=== PATIENT | female | born 1995 | race Caucasian/White ===

== ENCOUNTER 2016-08-16 22:58 | Observation (INO) | payer OTHER ==
[~2016-08-16] VITALS: Ht 157.5 cm; Wt 66.5 kg
--- NOTE | ~2016-08-16 | HP ---
PATIENT'S NAME: MEGAN LI [facility] AGE: 21 Y [address] ROOM: [address] [address] LOCATION: ED ADMIT DATE: 08/17/2016 History & Physical DISCHARGE DATE: FAMILY PHYSICIAN: PHYSICIAN, NO ATTENDING PHYSICIAN: CHYNA FRAGA DATE OF SERVICE: CHIEF COMPLAINT: Suprapubic and left lower quadrant abdominal pain. HISTORY OF PRESENT ILLNESS: This is a 21-year-old female without any past medical history and generally in good health, who says that she was at a bar eating chipotle and drinking beer with her boyfriend, and when she got up to go to the bathroom to urinate, she felt a sudden onset of suprapubic and left lower quadrant abdominal pain, intensity about 6/10, it is constant, and felt like a cramping type of pain. It gets worse with movement. She initially thought was just a urinary retention; however, the pain persisted despite having empty her bladder. She denied any dysuria, urinary frequency, or urgency. Her last bowel movement was today earlier at 2 p.m., it was normal, and she still passes flatus. She absolutely denies any nausea or vomiting. She never had any surgery in the abdomen before. She also has never felt like this before. Regarding her gynecological history, she is sexually active, using protection with having active sexual intercourse with her boyfriend, and she denies any history of sexually transmitted disease. She also denies any vaginal discharge or any foul-smelling discharge or any purulent drainage from her vagina. Her last menstrual period was 2 months ago. It is because she already has intrauterine device implanted on June 21, 2016, without complication and also without any pain. Her last Pap smear was checked a year ago, it was normal. She denies any other symptoms. Because of the worsening pain in the suprapubic and left lower quadrant area, the patient came here for evaluation. REVIEW OF SYSTEMS: As mentioned in the history of present illness. All other systems reviewed and negative except those mentioned in the history of present illness. PAST MEDICAL HISTORY: None. ALLERGIES: 1. PENICILLIN, WHICH CAUSES RASH. 2. CEPHALEXIN, ALSO CAUSES RASH. PATIENT'S NAME: MEGAN LI [facility] AGE: 21 Y [address] ROOM: [id number] [place], [place] [address] LOCATION: GPED ADMIT DATE: 08/17/2016 History & Physical DISCHARGE DATE: FAMILY PHYSICIAN: PHYSICIAN, HOLLY ATTENDING PHYSICIAN: CHYNA FRAGA MEDICATIONS: None. SOCIAL HISTORY: The patient denies any alcohol or illegal drug or cigarette smoking. PAST SURGICAL HISTORY: Status post left elbow surgery from trauma in the past and also status post tonsillectomy. She strongly denies any intraabdominal surgery in the past. FAMILY HISTORY: Father is healthy and mother has hypothyroidism. PHYSICAL EXAMINATION: VITAL SIGNS: At the time of my dictation, temperature 98, blood pressure 140/80, heart rate 75, respirations 14, saturation 100% on room air. GENERAL APPEARANCE: Alert and oriented x3, in no acute distress. HEENT: Pupils are equally round and reactive to light. Extraocular muscles intact. Anicteric sclerae. Nasal turbinates are normal bilaterally. Moist oral mucosa. No oral thrush. NECK: No JVD. No cervical lymphadenopathy. No neck stiffness. CARDIOVASCULAR: Regular rate and rhythm. Normal S1, S2. No murmur. No rubs, no gallops. RESPIRATORY: Clear. ABDOMEN: Soft, nondistended, bowel sounds present, no abdominal rigidity, no rebound tenderness, bowel sounds are present. There is mild tenderness to palpation in the suprapubic and in the left lower quadrant area. No ascites. EXTREMITIES: No edema in upper or lower extremities. NEUROLOGICAL: Grossly nonfocal. SKIN: No ulcer, no rash, no cyanosis. MUSCULOSKELETAL: No joint pain. No muscle pain. LABORATORY DATA: Lactic acid 1.21. White blood cell 8.8, hemoglobin 14.4, hematocrit 42.8, MCV 88.8, platelet 285. Glucose 96, BUN 8, creatinine 0.6, sodium 144, potassium 3.5, chloride 109, CO2 of 24, calcium 8.8. Total protein 7.7, albumin 3.9, AST 16, ALT 24, alkaline phosphatase 131, total bilirubin 0.2, anion gap 14.5, globulin 3.8, GFR more than 60. Urinalysis negative for UTI. Urine test, human chorionic gonadotropin hormone negative. Amylase 81, lipase 179. CRP 2.56. IMAGING STUDIES: KUB, the official report is pending. CT abdomen and pelvis with contrast on admission, the preliminary report PATIENT'S NAME: MEGAN LI [facility] AGE: 21 Y [address] ROOM: [id number] [place], [place] [id number] LOCATION: GPED ADMIT DATE: 08/17/2016 History & Physical DISCHARGE DATE: FAMILY PHYSICIAN: PHYSICIAN, NO ATTENDING PHYSICIAN: CHYNA FRAGA showed partial and mild proximal small bowel obstruction involving the proximal jejunum. Presentation is mildly suspicious for a left paraduodenal hernia. Alternatively, inflammatory findings may be secondary to a segmental enteritis. ASSESSMENT AND PLAN: 1. Regarding her suprapubic and left lower quadrant abdominal pain: She does not have any risk factor for small bowel obstruction. The report on the CT is preliminary, therefore, has to follow up with the official final report in the morning once it becomes finalized. For the questionable small bowel obstruction, that is partial and mild, will be NG tubed for intermittent suctioning, n.p.o. and IV fluids and pain control with narcotics p.r.n. The patient refused NG tube given that it is too uncomfortable. Currently, her abdominal pain is significantly improved, and she is not actively vomiting, and given that the patient refused NG tube, I am not going to force her. I am going to wait for the final report in the morning of the CT scan to confirm small bowel obstruction, and at that time, NG tube can be placed again if the patient agree. CT scan also showed left adnexal dermoid lesion, measures 3.3 x 1.9 cm. She also has pain on the palpation of the left lower quadrant, and she is very young and recently had intrauterine device implanted. I am going to get a pelvic ultrasound to make sure that there is no finding of ovarian torsion and have a better look at the left adnexal dermoid lesion to see better in detail. The patient refused pelvic examination. However, the patient denies any purulent discharge from the vagina, my other differential will be the pelvic inflammatory disease, but based on my examination from the abdominal palpation, the pain is very minor, and she is not febrile, there is no leukocytosis, probably less likely is the pelvic inflammatory disease. The other differential is the enteritis, for that, I am going to cover her with IV ciprofloxacin and IV Flagyl empirically for coverage for enteritis. Follow up with the official report of the CT abdomen and pelvis in the morning. In the morning, we will get a KUB again. Further plan depends on clinical course. 2. For her deep venous thrombosis prophylaxis: The patient is young. The patient can ambulate, does not require pharmacological medication and also does not require compression devices. Time spent in care on the day of admission 40 minutes including chart review, interviewing and examining the patient, addressing all the questions and concerns that the patient had, and going over the plan of care with the patient and the nurse and also the patient's boyfriend at the bedside. CHYNA FRAGA MD PATIENT'S NAME: MEGAN LI [facility] AGE: 21 Y [address] ROOM: [place] [address] LOCATION: ED ADMIT DATE: 08/17/2016 History & Physical DISCHARGE DATE: FAMILY PHYSICIAN: PHYSICIAN, NO ATTENDING PHYSICIAN: CHYNA FRAGA CC/avery /[id number] D: 405 T: 718 HISTORY & PHYSICAL
--- NOTE | ~2016-08-16 | ER ---
[facility]GE[facility] 21 Y [address] ROOM: [place] [address] LOCATION: GPED ADMIT DATE: 08/17/2016 ER/Outpatient Report DISCHARGE DATE: FAMILY PHYSICIAN: PHYSICIAN, NO ATTENDING PHYSICIAN: CHYNA FRAGA Admission date and time documented on the medical record. I saw the patient at 2310 hours. CHIEF COMPLAINT: Mid lower abdominal pain. HISTORY OF PRESENT ILLNESS: This is a 21-year-old female, who had acute onset of sudden sharp mid lower abdominal pain around 30 minutes prior to admission to the emergency room. Some nausea, but no vomiting. Had a bowel movement earlier today. No chest pain or shortness of breath. No back pain. No radiation of this pain. It stays in the mid lower abdomen. No urinary frequency, urgency, or dysuria. No lightheadedness, dizziness, syncope or near syncope. No fall or trauma. No headache, eyes, ears, nose, throat, neck, or spine pain. No recent colds, coughs, flus, fever, chills, or sweats. No joint or muscle swelling, redness, or pain. No skin eruptions or rash. No neuro changes, psych issues or endocrine problems. HOME MEDICATIONS: See attached medication list. ALLERGIES: PENICILLIN. SOCIAL HISTORY: Nonsmoker. Occasional intake of alcohol. SIGNIFICANT PAST MEDICAL HISTORY: Seasonal allergies, otherwise negative. OPERATIONS: None. REVIEW OF SYSTEMS: All systems reviewed by me are negative with the exception of those discussed in the history of present illness. PHYSICAL EXAMINATION: VITAL SIGNS: Temperature 98.9 tympanic, pulse 81, respirations 16, blood PATIENT'S NAME: MEGAN LI [facility] AGE: 21 Y [address] ROOM: [place] [address] LOCATION: GPED ADMIT DATE: 08/17/2016 ER/Outpatient Report DISCHARGE DATE: FAMILY PHYSICIAN: PHYSICIAN, NO ATTENDING PHYSICIAN: CHYNA FRAGA pressure 145/88, O2 saturation on room air is 97%. HEAD: Normocephalic. EYES, EARS, NOSE, THROAT: Clear. Mucous membranes moist. Teeth, jaw intact. NECK: No nuchal rigidity. No thyromegaly or cervical lymphadenopathy. No tenderness to palpation. SPINE: Nontender. No deformity. LUNGS: Clear. Good air flow. No rales, rhonchi, or wheezes. HEART: Regular. Pulses are palpable. No chest pain or rib cage pain. No deformity. ABDOMEN: Tender mid lower abdomen just below the umbilicus, suprapubic area. No palpable masses. No organomegaly or abnormal mass palpable or poor bowel tones. No CVA tenderness. EXTREMITIES: Intact. Neurovascularly intact. SKIN: Clear. No skin eruptions or rash. LABORATORY DATA: CMS was normal except for a low potassium of 3.5. Amylase and lipase were normal. CRP was 2.56. Urinalysis showed 5-10 whites, negative reds, 0-2 epithelial cells, few bacteria per high-powered field. Beta-hCG was normal less than 1.0. White count 8800, 44 segs, 44 lymphs, 7 monos, 4 eos, 1 baso. Hemoglobin is 14.4, hematocrit 42.8 and platelet count was 285,000. EMERGENCY DEPARTMENT COURSE: I did start the patient on some IV normal saline, fluids. I gave her Zofran for nausea and morphine for pain. We decided to do a CT scan of the abdomen and pelvis with IV contrast. CT scan showed partial mild proximal small bowel obstruction involving the proximal jejunum mildly suspicious for left paraduodenal ulcer or inflammatory findings maybe secondary to segmental enteritis. CT scan was read by Radiology, see dictated transcribed report. IMPRESSION: Acute abdominal pain. CT scan shows partial proximal small bowel obstruction involving the jejunum. PLAN: Discussed the patient with Dr. Fraga, hospitalist. The patient will be admitted to the hospital for further evaluation and treatment. The patient may need to have a surgery consult. Put her at bowel rest with IV fluids, NG tube. Discussion ensued with the patient concerning my findings and recommendations, she understands. MYCHAL JIMENEZ MD PATIENT'S NAME: MEGAN LI [facility] AGE: 21 Y [address] ROOM: [place] [address] LOCATION: GPED ADMIT DATE: 08/17/2016 ER/Outpatient Report DISCHARGE DATE: FAMILY PHYSICIAN: PHYSICIAN, NO ATTENDING PHYSICIAN: CHYNA FRAGA/jessical /[id number] d: 08/17/164 t: 08/17/16 1813, OUTPATIENT REPORT
[2016-08-16 23:36] LABS: BASOPHIL # 0.1 K/uL (0.0-0.2); BASOPHIL % 0.7 %; EOSINOPHIL # 0.3 K/uL (0.0-0.5); EOSINOPHIL % 3.9 %; HEMATOCRIT 42.8 % (33.0-46.0); HEMOGLOBIN 14.4 g/dL (11.0-15.0); IMMATURE GRANULOCYTE % 0.2 %; LYMPHOCYTE # 3.8 K/uL (0.8-4.0); LYMPHOCYTE % 43.5 %; MCH 29.9 pg (27.0-34.0); MCHC 33.6 gm/dL (32.0-36.5); MCV 88.8 fl (83.0-98.0); MONOCYTE # 0.7 K/uL (0.0-1.0); MONOCYTE % 7.4 %; MPV 9.8 fl (9.4-12.4); NEUTROPHIL # (ANC) 3.9 K/uL (1.8-7.8); NEUTROPHIL % 44.3 %; NRBC % 0 /100WBC (0-0.00); PLATELET COUNT 285 K/uL (150-450); RBC 4.82 M/uL (3.50-5.00); RDW-CV 12.2 % (11.9-14.6); WBC 8.8 K/uL (4.0-11.0)
[2016-08-16 23:56] LABS: ALBUMIN 3.9 gm/dL (3.5-5.0); ALK PHOS 131 IU/L (33-138); ALT 24 IU/L (12-78); ANION GAP 14.5 (10.0-19.0); AST 16 IU/L (10-40); BLOOD UREA NITROGEN 8 mg/dL (6-24); CALCIUM 8.8 mg/dL (8.5-10.5); CHLORIDE 109 mMol/L (96-110); CO2 24 mMol/L (22-32); CREATININE 0.6 mg/dL (0.5-1.1); ESTIMATED GFR (MDRD EQUATION) > 60; POTASSIUM 3.5 mMol/L (3.7-5.1); SODIUM 144 mMol/L (135-145); TOTAL BILIRUBIN 0.2 mg/dL (0.0-1.5); TOTAL PROTEIN 7.7 g/dL (6.0-8.4)
[2016-08-17 00:10] LABS: BILIRUBIN URINE NEGATIVE (NEGATIVE); BLOOD URINE NEGATIVE /UL (NEGATIVE); GLUCOSE URINE NEGATIVE (NEGATIVE); KETONE URINE NEGATIVE (NEGATIVE); LEUKOCYTES URINE 25 /UL (NEGATIVE); NITRITE URINE NEGATIVE (NEGATIVE); PH URINE 6.5 (4.0-8.0); PROTEIN URINE NEGATIVE (NEGATIVE); UROBILINOGEN URINE NORMAL (NORMAL)
[2016-08-17 00:14] LABS: COLOR URINE YELLOW (YELLOW); TURBIDITY URINE CLEAR (CLEAR)
[2016-08-17 00:52] LABS: BACTERIA URINE FEW (NEGATIVE); EPITHELIAL URINE 0-2 #/HPF (NEGATIVE); RBC URINE NEGATIVE #/HPF (NEGATIVE)
[2016-08-17] MEDS ORDERED: ZYRTEC10 M3 PO (04:16)
[2016-08-17] MEDS ORDERED: VITAMIN B-12500 MCG PO (04:17)
--- NOTE | 2016-08-17 05:09 | NUR ---
Pt admitted from ER around 0400 for partial small bowel obstruction. Pt stated severe left lower quad abdominal pain started about 0 and it seemed to get worse so boyfriend brought her to ER. No nausea or vomiting. Stated had normal bowel movement at 08/16 at 2:00p.m. Pt states she is passing flatus. Abdominal x-ray completed in ER. CT scan done in ER. Per ER report, CT showed partial small bowel obstruction. Transvaginal ultrasound was also completed in ER to rule out ovarian torsion. Pt has allergies to pencillin and keflex. Surgical history includes tonsillectomy and pinning of fractured arm as a child. According to ER, they tried to place an NG tube but pt couldn't tolerate it.
--- NOTE | 2016-08-17 05:25 | NUR ---
Significant Event: Pt admitted to floor at 0400. Pt alert and oriented. Boyfriend at bedside. IV fluids and antibiotics infusing without difficulty. Pt has denied the need for pain medications. NPO. Denies any nausea. Dr. Moody went over results of ultrasound with patient and it shows no ovarian torsion. Pt tearful at times. Heart rate slighlty tachycardic but other vital signs stable. Follow up:
[2016-08-17 10:12] LABS: MCH 29.7 pg (27.0-34.0); MCHC 33.3 gm/dL (32.0-36.5); MCV 89.2 fl (83.0-98.0); MPV 9.6 fl (9.4-12.4); RBC 4.71 M/uL (3.50-5.00); RDW-CV 12.1 % (11.9-14.6); WBC 10.2 K/uL (4.0-11.0)
[2016-08-17 10:24] LABS: ANION GAP 11.8 (10.0-19.0); BLOOD UREA NITROGEN 7 mg/dL (6-24); CALCIUM 8.5 mg/dL (8.5-10.5); CHLORIDE 112 mMol/L (96-110); CO2 24 mMol/L (22-32); CREATININE 0.7 mg/dL (0.5-1.1); ESTIMATED GFR (MDRD EQUATION) > 60; POTASSIUM 3.8 mMol/L (3.7-5.1); SODIUM 144 mMol/L (135-145)
--- NOTE | 2016-08-17 14:37 | NUR ---
Introduced self and role of care management to patient. She lives in [place] with a room-mate. She states that she is able to do all her own ADL's. She has friends that will assist as needed. She is planning on returning home on discharge. She denies any needs at this time. Will continue to follow.
--- NOTE | 2016-08-17 15:50 | NUR ---
Significant event: Ambulated in halls twice. Has had 2 small and 3 moderate BM prior to having Colace and Miralax. Has tolerated clear liquids and regular food. Denies pain and nausea.
[2016-08-17] MEDS ORDERED: CIPRO500 MG PO (17:27)
[2016-08-17] MEDS ORDERED: FLAGYL500 MG PO (17:28)
[2016-08-17] MEDS ORDERED: COLACE100 MG PO (17:29)
[2016-08-17] MEDS ORDERED: FLORASTOR250 MG PO (17:30)
[2016-08-17] MEDS ORDERED: MIRALAX PO527 GM/BOT PO (17:34)
--- NOTE | 2016-08-17 19:07 | NUR ---
D: Dismissal instructions given to patient and to boyfriend. While giving dismissal instructions patient laid down on bed and closed eyes and began to cry. Boyfriend reports it was because she was very tired and wanted to go home. Medicines explained for home use and written instructions given to patient. Patient denies pain and denies nausea. Patient reports she understands her dismissal instructions.
--- NOTE | 2016-08-17 19:15 | NUR ---
D: At dismissal patient reports she has an appointment with her gynecoloogist and will see her as scheduled regarding new diagnosis of ovarian cyst. Explained to patient while on Flagyl not to consume any alcohol and she reported she had a "beerfest" coming up.
== END 2016-08-17 18:15 | disposition disaster alternative care site (69) ==
LOC: GMED 22:58 → GPED 08-17 01:52
PROVIDERS: Emergency Medicine; ADMIT Internal Medicine
DX: K56.60 Unspecified intestinal obstruction (principal); K59.00 Constipation, unspecified; Z88.0 Allergy status to penicillin; Z88.1 Allergy status to other antibiotic agents; Z98.890 Other specified postprocedural states
CPT/HCPCS: G0378; J0744; J2270; J2405; J3480; J7030; Q9967